=== PATIENT | male | born 1950 | race Two or more races ===

== ENCOUNTER 2017-01-25 22:29 | Emergency (ER) | payer MEDICARE, MEDICAID ==
[~2017-01-25] VITALS: Ht 167.6 cm; Wt 78.5 kg
[2017-01-25 22:30] VITALS: BP 194/88
[2017-01-25 23:05] LABS: Basophils # (auto) 0 uL; Basophils % (auto) 0.4 % (0.0-2.0); Eosinophils # (auto) 0.2 uL; Eosinophils % (auto) 2.4 % (0.0-7.0); Hematocrit 31.9 % (41.0-53.0); Hemoglobin 11.2 g/dL (13.5-17.5); Lymphocytes # (auto) 2.3 uL; Mean Corpuscular Hemoglobin 30.8 pg (28.0-32.0); Mean Corpuscular Hgb Conc. 35.2 g/dL (32.0-36.0); Mean Corpuscular Volume 87.7 fL (80.0-100.0); Mean Platelet Volume 8.6 fL (6.9-10.8); Monocytes # (auto) 0.5 uL; Monocytes % (auto) 6.5 % (0.0-12.0); Neutrophils # (auto) 4.5 uL; Neutrophils % (auto) 59.7 % (37.0-80.0); Platelet Count (auto) 172 10^3/uL (140-450); Red Cell Distribution Width 13.1 % (11.8-14.3); White Blood Cell 7.5 10^3/uL (4.4-10.8)
[2017-01-25 23:23] LABS: INR 0.99 (0.9-1.15); Partial Thromboplastin Time 25.9 sec (22.64-33.71); Prothrombin Time 10.8 sec (9.37-12.3)
[2017-01-25 23:52] LABS: Albumin 3.6 g/dL (3.4-5.0); Alkaline Phosphatase 68 U/L (45-117); Anion Gap 9 (5-15); Aspartate Aminotransferase 12 U/L (15-37); BUN/Creatinine Ratio 21.2; Bilirubin, Total 0.4 mg/dL (0.2-1.0); Blood Urea Nitrogen 22 mg/dL (7-18); Calcium 8.7 mg/dL (8.5-10.1); Carbon Dioxide 24 mmol/L (21-32); Chloride 105 mmol/L (98-107); GFR African American 92 mL/min; GFR Non-African American 76 mL/min; Glucose 123 mg/dL (74-106); Magnesium 1.5 mg/dL (1.6-2.6); Potassium 4.3 mmol/L (3.5-5.1); Sodium 138 mmol/L (136-145); Total Protein 6.8 g/dL (6.4-8.2)
[2017-01-25 23:54] LABS: B-Type Natriuretic Peptide 66.54 pg/mL (0-100)
[2017-01-25 23:55] LABS: Temperature: 21.8 C (20.0-25.0)
== END 2017-01-26 03:50 | disposition left against medical advice (07) ==
LOC: ER 22:39
DX: I10 Essential (primary) hypertension (principal); Z53.21 Procedure and treatment not carried out due to patient leaving prior to being seen by health care provider
CPT/HCPCS: 36415; 70450; 71010; 80053; 83735; 83880; 84484; 85025; 85610; 85730; 93005

== ENCOUNTER 2017-08-22 15:11 | Emergency (ER) | payer OTHER, MEDICAID ==
[~2017-08-22] VITALS: Ht 165.1 cm; Wt 68.9 kg
[2017-08-22] MEDS ORDERED: cefTRIAXone W LIDOCAINE 1 GM IM IM ONE (16:30)
[2017-08-22] MEDS ORDERED: metroNIDAZOLE 500 MG TAB PO ONE (16:30)
[2017-08-22 17:18] LABS: Basophils # (auto) 0 uL; Basophils % (auto) 0.1 % (0.0-2.0); Eosinophils # (auto) 0.2 uL; Eosinophils % (auto) 1.5 % (0.0-7.0); Hematocrit 31.8 % (41.0-53.0); Hemoglobin 11.1 g/dL (13.5-17.5); Lymphocytes # (auto) 1.5 uL; Lymphocytes % (auto) 14.4 % (10.0-50.0); Mean Corpuscular Volume 88.4 fL (80.0-100.0); Monocytes # (auto) 0.6 uL; Monocytes % (auto) 5.3 % (0.0-12.0); Neutrophils # (auto) 8.3 uL; Neutrophils % (auto) 78.7 % (37.0-80.0); Nucleated Red Blood Cells % 0.1 %; Platelet Count (auto) 205 10^3/uL (140-450); Red Blood Cells 3.59 10^6/uL (4.5-5.90); White Blood Cell 10.5 10^3/uL (4.4-10.8)
[2017-08-22 17:19] LABS: BUN/Creatinine Ratio 22.8; Calcium 9.1 mg/dL (8.5-10.1); Potassium 4.4 mmol/L (3.5-5.1)
[2017-08-22 17:22] LABS: Bilirubin, Total 0.5 mg/dL (0.2-1.0); Total Protein 7.6 g/dL (6.4-8.2)
[2017-08-22 17:59] VITALS: BP 159/67
== END 2017-08-22 18:10 | disposition home or self-care (01) ==
LOC: ER 15:18
DX: L03.032 Cellulitis of left toe (principal); E11.9 Type 2 diabetes mellitus without complications; I10 Essential (primary) hypertension
CPT/HCPCS: 36415; 80053; 85025; 96372; 99284; J0696

== ENCOUNTER 2017-08-25 07:53 | Emergency (ER) | payer OTHER, MEDICAID ==
[2017-08-25 07:55] VITALS: BP 149/68
== END 2017-08-25 08:39 | disposition home or self-care (01) ==
LOC: ER 07:53
DX: S90.422D Blister (nonthermal), left great toe, subsequent encounter (principal); Z48.01 Encounter for change or removal of surgical wound dressing; E11.9 Type 2 diabetes mellitus without complications; I10 Essential (primary) hypertension

== ENCOUNTER 2022-04-07 08:00 | Inpatient (IN) | payer MEDICAID, OTHER ==
[2022-04-06] MEDS: ACCU-CHEK COMFORT CURVE STRIP VI SCH (12:40)
[~2022-04-07] VITALS: Ht 177.8 cm; Wt 86.4 kg
[2022-04-07] VITALS (11 sets, daily range): BP systolic 57–123; BP diastolic 37–59
[2022-04-07] MEDS: NOREPINEPHRINE 8 MG/250ML KIT 250 ML IV SCH ×3 (08:33→20:07)
[2022-04-07 08:50] LABS: Basophils # (auto) 0 10 ^3/uL (0-0.2); Basophils % (auto) 0.5 % (0.0-2.0); Eosinophils # (auto) 0 10 ^3/uL (0-0.8); Eosinophils % (auto) 0.2 % (0.0-7.0); Hematocrit 28.4 % (41.0-53.0); Hemoglobin 9.5 g/dL (13.5-17.5); Lymphocytes # (auto) 1.9 10 ^3/uL (0.4-5.4); Lymphocytes % (auto) 19.2 % (10.0-50.0); Mean Corpuscular Hemoglobin 31.8 pg (28.0-32.0); Mean Corpuscular Hgb Conc. 33.4 g/dL (32.0-36.0); Mean Corpuscular Volume 95.3 fL (80.0-100.0); Monocytes # (auto) 0.6 10 ^3/uL (0-1.3); Neutrophils # (auto) 7.4 10 ^3/uL (1.6-8.6); Neutrophils % (auto) 74.1 % (37.0-80.0); Nucleated Red Blood Cells % 0.2 %; Red Blood Cells 2.98 10^6/uL (4.5-5.90); Red Cell Distribution Width 13.2 % (11.8-14.3); White Blood Cell 9.9 10^3/uL (4.4-10.8)
[2022-04-07] MEDS ORDERED: LIDOCAINE 1% HCL (LOCAL ANESTH.) INJ 20ML MDV ONE (09:04)
[2022-04-07 09:07] LABS: INR 1.28 (0.9-1.15); Partial Thromboplastin Time 32.5 sec (24.6-33.4)
[2022-04-07 09:13] LABS: Albumin 2.6 g/dL (3.4-5.0); Anion Gap 15 (5-15); Blood Urea Nitrogen 44 mg/dL (7-18); Calcium 7.9 mg/dL (8.5-10.1); Carbon Dioxide 18 mmol/L (21-32); Chloride 109 mmol/L (98-107); Glucose 399 mg/dL (74-106); Magnesium 2.8 mg/dL (1.6-2.6); Potassium 5.4 mmol/L (3.5-5.1); Sodium 142 mmol/L (136-145)
[2022-04-07 09:18] LABS: Alanine Aminotransferase 105 U/L (16-61); Alkaline Phosphatase 46 U/L (45-117); Aspartate Aminotransferase 171 U/L (15-37); BUN/Creatinine Ratio 17.3; Bilirubin, Total 0.5 mg/dL (0.2-1.0); Blood Alcohol < 3.0 mg/dL (0-5); GFR African American 32 mL/min; GFR Non-African American 27 mL/min; Total Protein 4.6 g/dL (6.4-8.2)
[2022-04-07 09:20] LABS: Alcohol, Urine < 3.0 mg/dL (0-10); Amphetamine Screen, Urine NEGATIVE (NEGATIVE); Barbiturate Scree,Urine NEGATIVE (NEGATIVE); Benzodiazephine Screen, Urine NEGATIVE (NEGATIVE); Cannabinoid Screen, Urine NEGATIVE (NEGATIVE); Cocaine Screen, Urine NEGATIVE (NEGATIVE); Opiate Scree,Urine NEGATIVE (NEGATIVE); Phencyclidine Screen, Urine NEGATIVE (NEGATIVE)
[2022-04-07] MEDS: DOPamine 1600MCG/ML D5W 250 ML IV SCH (10:26)
[2022-04-07] MEDS ORDERED: MIDAZOLAM DRIP 50 mg/50mL 50 ML IV ONE (10:48)
[2022-04-07] MEDS: MIDAZOLAM DRIP 50 mg/50mL 50 ML IV SCH ×3 (10:50→20:07)
[2022-04-07] MEDS ORDERED: LORazepam 2MG/ML-1ML VIAL IV ONE (11:30)
[2022-04-07] MEDS ORDERED: SODIUM BICARBONATE 8.4 % INJ 50ML VIAL IV ONE ×2 (11:45→15:45)
[2022-04-07] MEDS ORDERED: FUROSEMIDE 40 MG/4 ML VIAL IV ONE (12:00)
[2022-04-07] MEDS ORDERED: ONDANSETRON HCL 4 MG/2 ML VIAL IV PRN (12:00)
[2022-04-07] MEDS ORDERED: HEPARIN DRIP/D5W 100UNITS/ML 250 ML IV SCH (12:00)
[2022-04-07] MEDS ORDERED: DEXTROSE (50%) 50ML SYRG IV PRN (12:00)
[2022-04-07] MEDS ORDERED: PROPOFOL 10 MG/ML 20 ML IV ONE (12:00)
[2022-04-07] MEDS ORDERED: HEPARIN SODIUM (PORCINE) 5000 UNITS/ML 1ML VIAL IV ONE (12:00)
[2022-04-07 12:31] LABS: Basophils # (auto) 0 10 ^3/uL (0-0.2); Basophils % (auto) 0.3 % (0.0-2.0); Eosinophils # (auto) 0 10 ^3/uL (0-0.8); Eosinophils % (auto) 0.1 % (0.0-7.0); Hematocrit 29.8 % (41.0-53.0); Hemoglobin 10.2 g/dL (13.5-17.5); Lymphocytes # (auto) 0.3 10 ^3/uL (0.4-5.4); Lymphocytes % (auto) 4.3 % (10.0-50.0); Mean Corpuscular Hemoglobin 31.8 pg (28.0-32.0); Mean Corpuscular Hgb Conc. 34.3 g/dL (32.0-36.0); Mean Corpuscular Volume 92.5 fL (80.0-100.0); Monocytes # (auto) 0.3 10 ^3/uL (0-1.3); Monocytes % (auto) 3.6 % (0.0-12.0); Neutrophils # (auto) 6.6 10 ^3/uL (1.6-8.6); Neutrophils % (auto) 91.7 % (37.0-80.0); Nucleated Red Blood Cells % 0.1 %; Red Blood Cells 3.22 10^6/uL (4.5-5.90); White Blood Cell 7.2 10^3/uL (4.4-10.8)
[2022-04-07] MEDS ORDERED: SODIUM BICARBONATE 50ML VIAL 150 ML in D5W 5% 1,000 ML IV SCH (13:00)
[2022-04-07] MEDS ORDERED: FUROSEMIDE 100 MG/10ML VIAL IV ONE (13:00)
[2022-04-07] MEDS: InsuLIN REG 1unit/0.01ml Soln (100units/ml) SC SCH ×2 (13:00→18:20)
[2022-04-07 13:11] LABS: INR 1.28 (0.9-1.15)
[2022-04-07] MEDS ORDERED: CALCIUM GLUC 1,000mg/50ml-NS 50 ML IV ONE ×2 (13:30→15:45)
[2022-04-07] MEDS ORDERED: ALBUTEROL SULF 2.5 MG/0.5ML(0.5%) NEB SOLN NEB ONE ×2 (13:30→15:45)
[2022-04-07] MEDS ORDERED: DEXTROSE (50%) 50ML SYRG IV ONE ×2 (13:30→15:45)
[2022-04-07] MEDS ORDERED: InsuLIN REG 1unit/0.01ml Soln (100units/ml) IV ONE ×2 (13:30→15:45)
[2022-04-07 14:17] LABS: Calcium 8.1 mg/dL (8.5-10.1)
[2022-04-07 15:14] LABS: Potassium 5.9 mmol/L (3.5-5.1)
[2022-04-07 17:23] LABS: Cholesterol 90 mg/dL (< 200); HDL Cholesterol 39 mg/dL (40-59); LDL Cholesterol 49 mg/dL (< 100); Triglycerides 30 mg/dL (< 150)
[2022-04-07 17:50] LABS: Albumin 2.8 g/dL (3.4-5.0); Calcium 8.3 mg/dL (8.5-10.1); Potassium 3.8 mmol/L (3.5-5.1)
[2022-04-07 17:53] LABS: BUN/Creatinine Ratio 18.8; Bilirubin, Total 0.7 mg/dL (0.2-1.0); Total Protein 5.4 g/dL (6.4-8.2)
[2022-04-07] MEDS: SODIUM BICARBONATE 50ML VIAL 75 ML in SOD CHL 0.45% 1,000 ML IV SCH (17:55)
[2022-04-07] MEDS: ACCU-CHEK COMFORT CURVE STRIP VI SCH (18:08)
[2022-04-07] MEDS: PROPOFOL 100 ML IV SCH (18:45)
[2022-04-07 21:29] LABS: Urine Bacteria FEW /hpf (None Seen); Urine Blood 3+ /uL (Negative); Urine Budding Yeast FEW /hpf (None Seen); Urine Mucus FEW (None Seen); Urine Specific Gravity 1.017 (1.001-1.035); Urine WBC 242 /hpf (0 - 3); Urine WBC Clumps PRESENT /hpf (None Seen)
[2022-04-07] MEDS: SODIUM ZIRCONIUM CYCL 10 GM PAK GT SCH (22:22)
[2022-04-07 22:30] LABS: INR 1.47 (0.9-1.15)
[2022-04-07 22:33] LABS: Partial Thromboplastin Time > 139.0 sec (24.6-33.4)
[2022-04-08] VITALS (9 sets, daily range): BP systolic 96–130; BP diastolic 51–63
[2022-04-08] MEDS: ACCU-CHEK COMFORT CURVE STRIP VI SCH ×4 (00:18→18:00)
[2022-04-08] MEDS: InsuLIN REG 1unit/0.01ml Soln (100units/ml) SC SCH ×4 (00:23→18:00)
[2022-04-08 01:21] LABS: Alanine Aminotransferase 206 U/L (16-61); Albumin 2.4 g/dL (3.4-5.0); Anion Gap 10 (5-15); Aspartate Aminotransferase 421 U/L (15-37); BUN/Creatinine Ratio 19.5; Blood Urea Nitrogen 50 mg/dL (7-18); Carbon Dioxide 25 mmol/L (21-32); Chloride 108 mmol/L (98-107); GFR African American 32 mL/min; GFR Non-African American 26 mL/min; Glucose 319 mg/dL (74-106); Potassium 3.4 mmol/L (3.5-5.1); Sodium 143 mmol/L (136-145)
[2022-04-08 01:23] LABS: Alkaline Phosphatase 52 U/L (45-117); Bilirubin, Total 0.5 mg/dL (0.2-1.0); Total Protein 5.1 g/dL (6.4-8.2)
[2022-04-08] MEDS: DOPamine 1600MCG/ML D5W 250 ML IV SCH ×2 (01:41→14:46)
[2022-04-08 02:09] LABS: INR 1.52 (0.9-1.15)
[2022-04-08 02:14] LABS: Partial Thromboplastin Time > 139.0 sec (24.6-33.4)
[2022-04-08] MEDS: PROPOFOL 100 ML IV SCH ×2 (02:40→12:55)
[2022-04-08] MEDS: SODIUM BICARBONATE 50ML VIAL 75 ML in SOD CHL 0.45% 1,000 ML IV SCH ×3 (03:32→18:41)
[2022-04-08 05:40] LABS: Albumin 2.7 g/dL (3.4-5.0); Calcium 8.1 mg/dL (8.5-10.1); Potassium 3.6 mmol/L (3.5-5.1)
[2022-04-08 05:43] LABS: BUN/Creatinine Ratio 21.4; Bilirubin, Total 0.5 mg/dL (0.2-1.0); Total Protein 5.4 g/dL (6.4-8.2)
[2022-04-08] MEDS: SODIUM ZIRCONIUM CYCL 10 GM PAK GT SCH ×3 (06:00→14:00)
[2022-04-08 06:15] LABS: INR 1.46 (0.9-1.15)
[2022-04-08 06:29] LABS: Partial Thromboplastin Time 135.5 sec (24.6-33.4)
[2022-04-08 08:12] LABS: Hematocrit 28.5 % (41.0-53.0); Hemoglobin 10.4 g/dL (13.5-17.5); Mean Corpuscular Volume 87.3 fL (80.0-100.0); Red Blood Cells 3.26 10^6/uL (4.5-5.90); White Blood Cell 6.3 10^3/uL (4.4-10.8)
[2022-04-08 08:19] LABS: Mean Corpuscular Hgb Conc. 36.6 g/dL (32.0-36.0)
[2022-04-08 08:20] LABS: Basophils % (manual) 0 (0.0-2.0); Blast Cells 0; Eosinophils % (manual) 0 (0-7); Promyelocytes % 0; Reactive Lymphocytes 0
[2022-04-08] MEDS ORDERED: cefTRIAXone 1GM/50ML D5W 50 ML IV ONE (09:15)
[2022-04-08] MEDS ORDERED: PANTOPRAZOLE 40 MG/10 ML VIAL INJ IV SCH (10:00)
[2022-04-08 10:25] LABS: INR 1.4 (0.9-1.15); Partial Thromboplastin Time 68.4 sec (24.6-33.4)
[2022-04-08 11:34] LABS: Band Neutrophils % (manual) 18; Lymphocytes % (manual) 13 (10.0-50.0); Metamyelocytes % 6; Monocytes % (manual) 1 (0-12); Myelocytes % 2
[2022-04-08] MEDS: MIDAZOLAM DRIP 50 mg/50mL 50 ML IV SCH ×3 (11:41→18:41)
[2022-04-08 12:29] LABS: Potassium 3.8 mmol/L (3.5-5.1)
[2022-04-08 12:36] LABS: Albumin 2.5 g/dL (3.4-5.0); BUN/Creatinine Ratio 23.5; Bilirubin, Total 0.5 mg/dL (0.2-1.0); Calcium 8.1 mg/dL (8.5-10.1); Total Protein 5.2 g/dL (6.4-8.2)
[2022-04-08 14:48] LABS: Albumin 2.5 g/dL (3.4-5.0); Calcium 7.8 mg/dL (8.5-10.1); Potassium 3.7 mmol/L (3.5-5.1)
[2022-04-08 14:51] LABS: BUN/Creatinine Ratio 23.4
[2022-04-08 14:53] LABS: Bilirubin, Total 0.6 mg/dL (0.2-1.0); Total Protein 5.3 g/dL (6.4-8.2)
[2022-04-08 16:20] LABS: Protein, Urine 39.1 mg/dL (0.0-11.9)
[2022-04-08] MEDS ORDERED: MORPHINE SULFATE INJ 2 MG/ml SYRG IV PRN (16:45)
[2022-04-08] MEDS ORDERED: LORazepam 2MG/ML-1ML VIAL IV PRN (16:45)
[2022-04-08 16:49] LABS: Albumin 2.4 g/dL (3.4-5.0); BUN/Creatinine Ratio 23.1; Calcium 7.6 mg/dL (8.5-10.1); Potassium 3.8 mmol/L (3.5-5.1)
[2022-04-08 16:52] LABS: Bilirubin, Total 0.6 mg/dL (0.2-1.0); Total Protein 4.7 g/dL (6.4-8.2)
[2022-04-08] MEDS ORDERED: LORazepam 2MG/ML-1ML VIAL ONE (17:04)
[2022-04-08] MEDS ORDERED: PIPERACILLIN-TAZOB 2.25GM 50 ML IV SCH (18:00)
[2022-04-08] MEDS ORDERED: LINEZOLID 600MG/300ML 300 ML IV SCH (22:00)
[2022-04-08] MEDS ORDERED: FAMOTIDINE (10MG/ML) 2ML VL IV SCH (22:00)
[2022-04-09] MEDS ORDERED: cefTRIAXone 1GM/50ML D5W 50 ML IV SCH (09:00)
[2022-04-09] MEDS ORDERED: FUROSEMIDE 40 MG/4 ML VIAL IV SCH (10:00)
== END 2022-04-08 17:21 | DRG 871 ==
LOC: EDBD 08:00 → ER 08:00 → OVERFLOW 11:50
PROVIDERS: ADMIT Nurse Practitioner Family; ATTEND Internal Medicine
PROC: 5A1945Z Respiratory Ventilation, 24-96 Consecutive Hours (ICD-10-PCS; principal; 2022-04-07)
PROC: 0BH17EZ Insertion of Endotracheal Airway into Trachea, Via Natural or Artificial Opening (ICD-10-PCS; 2022-04-07)
PROC: 06HM33Z Insertion of Infusion Device into Right Femoral Vein, Percutaneous Approach (ICD-10-PCS; 2022-04-07)
PROC: 30233R1 Transfusion of Nonautologous Platelets into Peripheral Vein, Percutaneous Approach (ICD-10-PCS; 2022-04-07)
DX: A41.9 Sepsis, unspecified organism (principal); E43 Unspecified severe protein-calorie malnutrition; I21.4 Non-ST elevation (NSTEMI) myocardial infarction; J96.01 Acute respiratory failure with hypoxia; N17.0 Acute kidney failure with tubular necrosis; I50.43 Acute on chronic combined systolic (congestive) and diastolic (congestive) heart failure; R65.21 Severe sepsis with septic shock; G93.1 Anoxic brain damage, not elsewhere classified; I13.0 Hypertensive heart and chronic kidney disease with heart failure and stage 1 through stage 4 chronic kidney disease, or unspecified chronic kidney disease; J98.11 Atelectasis; I46.8 Cardiac arrest due to other underlying condition; Z66 Do not resuscitate; M81.0 Age-related osteoporosis without current pathological fracture; N18.9 Chronic kidney disease, unspecified; Z51.5 Encounter for palliative care; R56.9 Unspecified convulsions; I25.10 Atherosclerotic heart disease of native coronary artery without angina pectoris; E78.5 Hyperlipidemia, unspecified; Z20.822 Contact with and (suspected) exposure to COVID-19; D63.1 Anemia in chronic kidney disease; K21.9 Gastro-esophageal reflux disease without esophagitis; R74.01 Elevation of levels of liver transaminase levels; E11.22 Type 2 diabetes mellitus with diabetic chronic kidney disease; E11.65 Type 2 diabetes mellitus with hyperglycemia; E87.5 Hyperkalemia; Z79.899 Other long term (current) drug therapy; R57.0 Cardiogenic shock; Z99.3 Dependence on wheelchair; Z82.49 Family history of ischemic heart disease and other diseases of the circulatory system; Z83.3 Family history of diabetes mellitus; Z85.038 Personal history of other malignant neoplasm of large intestine; Z87.891 Personal history of nicotine dependence; Z86.73 Personal history of transient ischemic attack (TIA), and cerebral infarction without residual deficits
CPT/HCPCS: 36415; 36556; 36600; 70450; 71045; 76775; 80048; 80053; 80061; 80307; 80320; 81001; 82010; 82570; 82805; 82962; 83036; 83605; 83735; 83880; 83935; 84100; 84156; 84300; 84443; 84484; 85007; 85025; 85027; 85049; 85362; 85379; 85384; 85610; 85730; 86850; 86900; 86901; 87040; 87070; 87077; 87186; 87205; 87426; 87804; 93005; 93306; 94002; 94003; 94640; 95819; 96365; 96375; 99291; C9113; G0378; J0696; J1815; J2001; J2250; J2704; J7060